=== PATIENT | male | born 1965 | race Caucasian/White ===

== ENCOUNTER 2016-07-27 19:06 | Emergency (ER) | payer BC ==
[~2016-07-27 19:06] MED LIST: ERYTHROMYCIN3.5 GM OP; NORCO 7.5/325 T1 TAB PO; PERCOCET 10/31 UDTAB PO
== END 2016-07-27 19:42 | disposition left against medical advice (07) ==
LOC: EDMED 19:06
DX: Z53.21 Procedure and treatment not carried out due to patient leaving prior to being seen by health care provider (principal)